=== PATIENT | male | born 1930 | race Caucasian/White ===

== ENCOUNTER 2016-11-07 18:34 | Emergency (ER) | payer OTHER ==
[~2016-11-07] VITALS: Ht 175.3 cm; Wt 102.6 kg
[~2016-11-07 18:34] MED LIST: ACETAMINOPHEN500 M1 PO; ADVAIR 250-501 EACH IH; ADVAIR 250/501 DISK IH; ASPIR 8181 M1 PO; ASPIRIN81 M1 PO; ATIVAN0.5 MG PO; BEE CAPS PO; CALCIUM600 MG PO; CIPRO500 MG PO; COLACE100 MG PO; COQ-10100 MG PO; CRANBERRY PO; CRANBERRY200 MG PO; CYANOCOBALAM1000 MCG PO; DULERA 200 MCG/13 GM IH; ENDOCET 5-3251 EACH PO; GARLIC OIL1 EACH PO; GARLIC PO; IMDUR60 MG PO; ISOSORBIDE ER PO; ISOSORBIDE MONO60 MG PO; K-DUR20 MEQ PO; LASIX40 MG PO; LISINOPRIL-HCT1 EACH PO; LO-DOSE ASPIRIN81 M2 PO; METOPROLOL SUCC25 MG PO; METOPROLOL TART25 MG PO; MOTRIN800 MG PO; MUCUS RELIEF400 MG PO; MULTIVITAMIN PO; MULTIVITAMIN1 EAC2 PO; Metoprolol Tartrate PO; OMEGA 3 FISH OIL PO; OMEGA FISH O PO; PERCOCET 5/31 TABLET PO; PLAVIX75 MG PO; PROTONIX40 MG PO; SALINE NOSE SPR45 M1 NS; SIMVASTATIN10 M1 PO; SIMVASTATIN40 MG PO; SINGULAIR10 MG PO; Singulair PO; TRAMADOL HCL50 MG PO; VITAMIN C500 M1 PO; VITAMIN D-32000 UNIT PO; VITAMIN D31000 UNI1 PO; ZESTORETIC,P1 TABLET PO; ZOCOR40 MG PO
[2016-11-07 21:20] LABS: ADD MIUA? YES; BILIRUBIN NEGATIVE; BLOOD NEGATIVE; COLOR YELLOW ((YELLOW)); GLUCOSE (STRIP) NEGATIVE; KETONES NEGATIVE; LEUKOCYTES LARGE; NITRITE POSITIVE; PROTEIN (STRIP) 30; SPECIFIC GRAVITY 1.011 (1.000-1.030); UROBILINOGEN 0.2 MG/DL (0.2-1.0)
[2016-11-07 22:02] LABS: BACTERIA RARE /HPF; CASTS NONE SEEN /LPF; CRYSTALS NONE SEEN; EPITHELIAL CELLS RARE /HPF; MUCUS NONE SEEN /LPF; RED BLOOD CELLS 0-5 /HPF (0-5); WHITE BLOOD CELLS TNTC /HPF (0-5)
[2016-11-07 22:45] LABS: HEMATOCRIT 38.1 % (38.0-50.0); MCH 30.1 PG (29.0-34.0); MCHC 32.3 G/DL (30.0-36.0); MCV 93.2 FL (86-99); MEAN PLAT.VOLUME 9.4 uM^3 (9.0-12.4); PLATELET COUNT 207 K/uL (156-360); RBC DIS.WIDTH-CV 14.1 % (11.8-14.6); RBC DIS.WIDTH-SD 47.5 % (39-53); RED BLOOD COUNT 4.09 M/uL (4.00-5.50)
[2016-11-07 22:58] LABS: CHLORIDE 101 mEq/L (99-109); POTASSIUM 3.2 mEq/L (3.7-5.4); SODIUM 139 mEq/L (136-147)
[2016-11-07 23:01] LABS: GLUCOSE 106 mg/dL (70-99)
[2016-11-07 23:02] LABS: ANION GAP 10 MEQ/L (2-14)
[2016-11-07 23:03] LABS: TOTAL BILIRUBIN 0.8 mg/dL (0.0-1.0)
[2016-11-07 23:04] LABS: ALKALINE PHOSPHATASE 52 IU/L (3-129); GFR ESTIMATE (CALCULATED) 38 mL/min/
[2016-11-07 23:05] LABS: UREA NITROGEN (BUN) 17 mg/dL (9-23)
[2016-11-07 23:08] LABS: LIPASE 43 U/L (1.0-51.0)
[2016-11-07] MEDS ORDERED: CIPRO500 MG PO (23:36)
[2016-11-07] MEDS ORDERED: TRAMADOL HCL50 MG PO (23:36)
[2016-11-08 00:22] VITALS: BP 133/70
== END 2016-11-08 00:22 | disposition home or self-care (01) ==
LOC: EME 18:34
PROVIDERS: Emergency Medicine
DX: N30.90 Cystitis, unspecified without hematuria (principal); M25.561 Pain in right knee; M25.562 Pain in left knee; G89.29 Other chronic pain; M17.9 Osteoarthritis of knee, unspecified; R60.0 Localized edema; E78.5 Hyperlipidemia, unspecified; I10 Essential (primary) hypertension; Z95.1 Presence of aortocoronary bypass graft; Z87.891 Personal history of nicotine dependence; Z79.82 Long term (current) use of aspirin
CPT/HCPCS: 73564; 74176; 80053; 81003; 83690; 85027

== ENCOUNTER 2016-11-29 20:28 | Inpatient (IN) | payer OTHER ==
[~2016-11-29] VITALS: Ht 170.2 cm; Wt 100.2 kg
[2016-11-29 20:58] LABS: EOSINOPHIL (%) 0.2 % (0-5); HEMATOCRIT 41.6 % (38.0-50.0); IMMATURE GRANULOCYTE (%) 0.6 % (0.0-0.7); IMMATURE GRANULOCYTE COUNT 0.1 K/uL; INSTRUMENT ABS NEUTROPHIL CT 8.5 K/uL; LYMPHOCYTE COUNT 1.6 K/uL (1.0-2.8); MCH 30.3 PG (29.0-34.0); MCHC 31.7 G/DL (30.0-36.0); MCV 95.4 FL (86-99); MEAN PLAT.VOLUME 9.4 uM^3 (9.0-12.4); MONOCYTE COUNT 0.8 K/uL (0-0.8); NEUTROPHIL (%) 77.3 % (45-76); NEUTROPHIL COUNT 8.5 K/uL (1.8-6.4); PLATELET COUNT 159 K/uL (156-360); RBC DIS.WIDTH-CV 14.6 % (11.8-14.6); RBC DIS.WIDTH-SD 51.3 % (39-53); RED BLOOD COUNT 4.36 M/uL (4.00-5.50); WHITE BLOOD COUNT 10.9 K/uL (4.1-10.2)
[2016-11-29 21:08] LABS: CHLORIDE 105 mEq/L (99-109); POTASSIUM 4.1 mEq/L (3.7-5.4); SODIUM 138 mEq/L (136-147)
[2016-11-29 21:10] LABS: GLUCOSE 108 mg/dL (70-99)
[2016-11-29 21:11] LABS: ANION GAP 9 MEQ/L (2-14)
[2016-11-29 21:14] LABS: GFR ESTIMATE (CALCULATED) 41 mL/min/
[2016-11-29 21:15] LABS: UREA NITROGEN (BUN) 30 mg/dL (9-23)
[2016-11-29 22:08] LABS: TROP-I INTERPRETATION NEGATIVE; TROPONIN-I 0.02 ng/mL (0.0-0.30)
[2016-11-29 22:13] LABS: ADD MIUA? YES; BILIRUBIN NEGATIVE; BLOOD SMALL; COLOR YELLOW ((YELLOW)); GLUCOSE (STRIP) NEGATIVE; KETONES NEGATIVE; LEUKOCYTES LARGE; NITRITE NEGATIVE; PROTEIN (STRIP) 100; SPECIFIC GRAVITY 1.013 (1.000-1.030)
[2016-11-29 22:32] LABS: BACTERIA 2+ /HPF; CASTS NONE SEEN /LPF; CRYSTALS NONE SEEN; EPITHELIAL CELLS 1+ /HPF; MUCUS NONE SEEN /LPF; UCUL ADDED? YES; WHITE BLOOD CELLS TNTC /HPF (0-5)
[2016-11-29] MEDS ORDERED: LO-DOSE ASPIRIN81 M2 PO (23:16)
[2016-11-29] MEDS ORDERED: EXTRA STRENGTH500 M1 PO (23:16)
[2016-11-29] MEDS ORDERED: CRANBERRY TABL1 EACH PO (23:17)
[2016-11-29] MEDS ORDERED: CLOPIDOGREL75 MG PO (23:17)
[2016-11-29] MEDS ORDERED: BREO ELLIPTA 21 EACH IH (23:17)
[2016-11-29] MEDS ORDERED: ONE DAILY FOR1 EAC2 PO (23:18)
[2016-11-29] MEDS ORDERED: FLONASE16 G1 BOTH NARES (23:18)
[2016-11-29] MEDS ORDERED: FISH OIL 1,0001 EAC7 PO (23:18)
[2016-11-29] MEDS ORDERED: FUROSEMIDE40 MG PO ×2 (23:19)
[2016-11-29] MEDS ORDERED: METOPROLOL TART25 MG PO (23:20)
[2016-11-29] MEDS ORDERED: ISOSORBIDE MONO60 MG PO (23:20)
[2016-11-29] MEDS ORDERED: PROTONIX40 MG PO (23:21)
[2016-11-29] MEDS ORDERED: NITROSTAT0.4 MG SL (23:21)
[2016-11-29] MEDS ORDERED: K-DUR10 MEQ PO (23:22)
[2016-11-29] MEDS ORDERED: VITAMIN D31000 UNIT PO (23:23)
[2016-11-29] MEDS ORDERED: SIMVASTATIN40 MG PO (23:23)
[2016-11-29] MEDS ORDERED: SINGULAIR10 MG PO (23:23)
[2016-11-29] MEDS ORDERED: VITRON-C TABLE1 EACH PO (23:24)
[2016-11-29] MEDS ORDERED: VITAMIN D32000 UNI1 PO (23:24)
[2016-11-30 02:33] LABS: D-DIMER ELISA > 4.00 mg/L FEU (< 0.57)
[2016-11-30 02:37] VITALS: BP 138/80
[2016-11-30 05:55] LABS: MCH 30.5 PG (29.0-34.0); MCV 95.2 FL (86-99); MEAN PLAT.VOLUME 10.1 uM^3 (9.0-12.4); PLATELET COUNT 165 K/uL (156-360); RBC DIS.WIDTH-CV 14.4 % (11.8-14.6); RBC DIS.WIDTH-SD 50.5 % (39-53)
[2016-11-30 06:17] LABS: ANION GAP 11 MEQ/L (2-14); CHLORIDE 102 MEQ/L (99-109); GFR ESTIMATE (CALCULATED) 38 mL/min/; GLUCOSE 113 mg/dL (70-99); POTASSIUM 3.7 MEQ/L (3.7-5.4); SAMPLE HEMOLYSIS CHECK 0; SAMPLE ICTERIC CHECK 0; SAMPLE LIPEMIA CHECK 0; SODIUM 141 MEQ/L (136-147); UREA NITROGEN (BUN) 32 mg/dL (9-23)
[2016-11-30 07:51] VITALS: BP 130/70
[2016-11-30 16:00] VITALS: BP 128/71
[2016-11-30 19:50] VITALS: BP 101/55
[2016-12-01] VITALS: BP 123/61
[2016-12-01 03:33] VITALS: BP 120/68
[2016-12-01 07:42] VITALS: BP 138/71
[2016-12-01 11:11] VITALS: BP 117/62
[2016-12-01 15:24] VITALS: BP 120/57
[2016-12-01 19:58] VITALS: BP 120/57
[2016-12-02] VITALS (7 sets, daily range): BP systolic 126–149; BP diastolic 62–89
[2016-12-02 06:11] LABS: ANION GAP 10 MEQ/L (2-14); CHLORIDE 101 MEQ/L (99-109); GFR ESTIMATE (CALCULATED) 41 mL/min/; GLUCOSE 103 mg/dL (70-99); POTASSIUM 3.3 MEQ/L (3.7-5.4); SAMPLE HEMOLYSIS CHECK 0; SAMPLE ICTERIC CHECK 0; SAMPLE LIPEMIA CHECK 0; SODIUM 140 MEQ/L (136-147); UREA NITROGEN (BUN) 34 mg/dL (9-23)
[2016-12-02 06:19] LABS: EOSINOPHIL (%) 2.9 % (0-5); EOSINOPHIL COUNT 0.2 K/uL (0-0.3); HEMATOCRIT 35.3 % (38.0-50.0); IMMATURE GRANULOCYTE (%) 0.4 % (0.0-0.7); INSTRUMENT ABS NEUTROPHIL CT 4.4 K/uL; LYMPHOCYTE COUNT 1.6 K/uL (1.0-2.8); MCHC 32.9 G/DL (30.0-36.0); MCV 94.4 FL (86-99); MONOCYTE (%) 7.9 % (3-12); MONOCYTE COUNT 0.5 K/uL (0-0.8); NEUTROPHIL (%) 64.6 % (45-76); NEUTROPHIL COUNT 4.4 K/uL (1.8-6.4); PLATELET COUNT 156 K/uL (156-360); RBC DIS.WIDTH-CV 14.1 % (11.8-14.6); RBC DIS.WIDTH-SD 48.6 % (39-53); RED BLOOD COUNT 3.74 M/uL (4.00-5.50); WHITE BLOOD COUNT 6.8 K/uL (4.1-10.2)
[2016-12-02 10:13] LABS: TREPONEMA ANTIBODY NEGATIVE (NEGATIVE)
[2016-12-03] VITALS: BP 156/74
[2016-12-03 03:46] VITALS: BP 139/68
[2016-12-03 06:12] LABS: EOSINOPHIL (%) 2.1 % (0-5); EOSINOPHIL COUNT 0.2 K/uL (0-0.3); HEMATOCRIT 37.3 % (38.0-50.0); IMMATURE GRANULOCYTE (%) 0.5 % (0.0-0.7); INSTRUMENT ABS NEUTROPHIL CT 4.6 K/uL; MCHC 33.2 G/DL (30.0-36.0); MCV 93.3 FL (86-99); MEAN PLAT.VOLUME 10.3 uM^3 (9.0-12.4); MONOCYTE COUNT 0.4 K/uL (0-0.8); NEUTROPHIL (%) 63.5 % (45-76); NEUTROPHIL COUNT 4.6 K/uL (1.8-6.4); PLATELET COUNT 172 K/uL (156-360); RBC DIS.WIDTH-SD 47.5 % (39-53); WHITE BLOOD COUNT 7.3 K/uL (4.1-10.2)
[2016-12-03 06:41] LABS: ANION GAP 11 MEQ/L (2-14); CHLORIDE 101 MEQ/L (99-109); GFR ESTIMATE (CALCULATED) 47 mL/min/; GLUCOSE 106 mg/dL (70-99); POTASSIUM 3.6 MEQ/L (3.7-5.4); SAMPLE HEMOLYSIS CHECK 0; SAMPLE ICTERIC CHECK 0; SAMPLE LIPEMIA CHECK 0; SODIUM 142 MEQ/L (136-147); UREA NITROGEN (BUN) 28 mg/dL (9-23)
[2016-12-03 08:39] VITALS: BP 149/82
[2016-12-03 11:26] VITALS: BP 138/79
[2016-12-03] MEDS ORDERED: FAMOTIDINE20 MG PO (12:09)
[2016-12-03] MEDS ORDERED: LINEZOLID600 MG PO (12:10)
== END 2016-12-03 14:19 | disposition home or self-care (01) | DRG 70 ==
LOC: EME → EDBD 20:28 → 5SOUTH 11-30 00:41 → EDOF 11-30 00:41 → 5SOUTH 11-30 02:20
PROVIDERS: Emergency Medicine; Hospitalist; Internal Medicine
DX: G93.41 Metabolic encephalopathy (principal); N30.01 Acute cystitis with hematuria; J96.01 Acute respiratory failure with hypoxia; I13.0 Hypertensive heart and chronic kidney disease with heart failure and stage 1 through stage 4 chronic kidney disease, or unspecified chronic kidney disease; I47.1 Supraventricular tachycardia; I25.10 Atherosclerotic heart disease of native coronary artery without angina pectoris; N18.4 Chronic kidney disease, stage 4 (severe); I50.32 Chronic diastolic (congestive) heart failure; I35.0 Nonrheumatic aortic (valve) stenosis; E66.9 Obesity, unspecified; I89.0 Lymphedema, not elsewhere classified; J84.10 Pulmonary fibrosis, unspecified; E78.5 Hyperlipidemia, unspecified; E87.6 Hypokalemia; F03.90 Unspecified dementia, unspecified severity, without behavioral disturbance, psychotic disturbance, mood disturbance, and anxiety; G31.9 Degenerative disease of nervous system, unspecified; J32.0 Chronic maxillary sinusitis; B95.62 Methicillin resistant Staphylococcus aureus infection as the cause of diseases classified elsewhere; J45.909 Unspecified asthma, uncomplicated; K44.9 Diaphragmatic hernia without obstruction or gangrene; M19.90 Unspecified osteoarthritis, unspecified site; K92.2 Gastrointestinal hemorrhage, unspecified; Z66 Do not resuscitate; Z95.1 Presence of aortocoronary bypass graft; Z85.828 Personal history of other malignant neoplasm of skin; Z95.5 Presence of coronary angioplasty implant and graft; Z87.11 Personal history of peptic ulcer disease; Z91.19 Patient's noncompliance with other medical treatment and regimen; Z87.891 Personal history of nicotine dependence; Z68.34 Body mass index [BMI] 34.0-34.9, adult; Z82.49 Family history of ischemic heart disease and other diseases of the circulatory system; Z90.49 Acquired absence of other specified parts of digestive tract
CPT/HCPCS: 70450; 70551; 71010; 71020; 78582; 80048; 81003; 82746; 83605; 83880; 84443; 84484; 85025; 85027; 85379; 86780; 87040; 87077; 87086; 87147; 87186; 93005; 93971; 94640; 94640 76; 94799; 99202; 99281; 99285; A9540; A9567; J0696; J1644; J1650; J1940; J2405; J3370; J7050

== ENCOUNTER 2017-03-06 12:26 | Emergency (ER) | payer OTHER ==
[~2017-03-06] VITALS: Ht 175.3 cm; Wt 99.8 kg
[~2017-03-06 12:26] MED LIST changes: +BREO ELLIPTA 21 EACH IH; +CLOPIDOGREL75 MG PO; +CRANBERRY TABL1 EACH PO; +EXTRA STRENGTH500 M1 PO; +FAMOTIDINE20 MG PO; +FISH OIL 1,0001 EAC7 PO; +FLONASE16 G1 BOTH NARES; +FUROSEMIDE40 MG PO; +K-DUR10 MEQ PO; +LINEZOLID600 MG PO; +NITROSTAT0.4 MG SL; +ONE DAILY FOR1 EAC2 PO; +VITAMIN D31000 UNIT PO; +VITAMIN D32000 UNI1 PO; +VITRON-C TABLE1 EACH PO
[2017-03-06 14:57] VITALS: BP 136/74
== END 2017-03-06 14:58 | disposition home or self-care (01) ==
LOC: EME 12:26
DX: S09.90XA Unspecified injury of head, initial encounter (principal); S43.401A Unspecified sprain of right shoulder joint, initial encounter; V49.50XA Passenger injured in collision with unspecified motor vehicles in traffic accident, initial encounter; Y92.410 Unspecified street and highway as the place of occurrence of the external cause; I10 Essential (primary) hypertension; J45.909 Unspecified asthma, uncomplicated; E78.5 Hyperlipidemia, unspecified; N35.9 Urethral stricture, unspecified; Z95.1 Presence of aortocoronary bypass graft; Z87.891 Personal history of nicotine dependence; Z85.828 Personal history of other malignant neoplasm of skin; Z79.02 Long term (current) use of antithrombotics/antiplatelets; Z79.82 Long term (current) use of aspirin
CPT/HCPCS: 70450; 73030; 99281; 99284

== ENCOUNTER 2017-04-30 11:27 | Emergency (ER) | payer OTHER ==
[~2017-04-30] VITALS: Ht 175.3 cm; Wt 100.6 kg
[2017-04-30 12:11] LABS: HEMATOCRIT 39.4 % (38.0-50.0); MCH 31.3 PG (29.0-34.0); MCHC 33.5 G/DL (30.0-36.0); MCV 93.4 FL (86-99); PLATELET COUNT 205 K/uL (156-360); RBC DIS.WIDTH-SD 47.3 % (39-53); RED BLOOD COUNT 4.22 M/uL (4.00-5.50); WHITE BLOOD COUNT 8.5 K/uL (4.1-10.2)
[2017-04-30 12:25] LABS: CHLORIDE 103 mEq/L (99-109); POTASSIUM 3.5 mEq/L (3.7-5.4); SODIUM 137 mEq/L (136-147)
[2017-04-30 12:27] LABS: GLUCOSE 96 mg/dL (70-99)
[2017-04-30 12:29] LABS: ANION GAP 10 MEQ/L (2-14); TOTAL BILIRUBIN 0.7 mg/dL (0.0-1.0)
[2017-04-30 12:31] LABS: ALKALINE PHOSPHATASE 53 IU/L (3-129); GFR ESTIMATE (CALCULATED) 43 mL/min/
[2017-04-30 12:32] LABS: UREA NITROGEN (BUN) 18 mg/dL (9-23)
[2017-04-30 13:35] LABS: ADD MIUA? YES; BILIRUBIN NEGATIVE; BLOOD NEGATIVE; COLOR YELLOW ((YELLOW)); GLUCOSE (STRIP) NEGATIVE; KETONES NEGATIVE; LEUKOCYTES LARGE; NITRITE NEGATIVE; PROTEIN (STRIP) NEGATIVE; SPECIFIC GRAVITY 1.009 (1.000-1.030); UROBILINOGEN 0.2 MG/DL (0.2-1.0)
[2017-04-30 13:42] LABS: BACTERIA RARE /HPF; EPITHELIAL CELLS RARE /HPF; MUCUS TRACE /LPF; UCUL ADDED? YES; UNCLASSIFIED CASTS 0-5 /LPF; WHITE BLOOD CELLS TNTC /HPF (0-5)
[2017-04-30] MEDS ORDERED: ZOFRAN4 MG PO (15:58)
[2017-04-30] MEDS ORDERED: KEFLEX500 MG PO (15:58)
[2017-04-30 16:35] VITALS: BP 117/70
== END 2017-04-30 16:38 | disposition home or self-care (01) ==
LOC: EME 11:27
DX: N39.0 Urinary tract infection, site not specified (principal); R11.2 Nausea with vomiting, unspecified; R19.7 Diarrhea, unspecified; E78.5 Hyperlipidemia, unspecified; I10 Essential (primary) hypertension; J45.909 Unspecified asthma, uncomplicated; Z87.440 Personal history of urinary (tract) infections; Z85.828 Personal history of other malignant neoplasm of skin; Z95.1 Presence of aortocoronary bypass graft; Z79.82 Long term (current) use of aspirin; Z88.2 Allergy status to sulfonamides; Z88.5 Allergy status to narcotic agent; Z87.891 Personal history of nicotine dependence; Z88.8 Allergy status to other drugs, medicaments and biological substances
CPT/HCPCS: 74177; 80053; 81003; 85027; 87077; 87086; 87186; 87493; 99281; 99285; J0696; J2405; J7030

== ENCOUNTER 2017-07-23 13:51 | Emergency (ER) | payer OTHER ==
[~2017-07-23] VITALS: Ht 175.3 cm; Wt 100.7 kg
[~2017-07-23 13:51] MED LIST changes: +KEFLEX500 MG PO; +ZOFRAN4 MG PO
[2017-07-23] MEDS ORDERED: COLCHICINE0.6 M1 PO (17:01)
[2017-07-23] MEDS ORDERED: PREDNISONE50 MG PO (17:01)
[2017-07-23 17:48] VITALS: BP 132/67
== END 2017-07-23 17:50 | disposition home or self-care (01) ==
LOC: EME 13:51
DX: M10.9 Gout, unspecified (principal); J45.909 Unspecified asthma, uncomplicated; E78.5 Hyperlipidemia, unspecified; I10 Essential (primary) hypertension; Z95.1 Presence of aortocoronary bypass graft; Z90.49 Acquired absence of other specified parts of digestive tract; Z87.440 Personal history of urinary (tract) infections; Z85.828 Personal history of other malignant neoplasm of skin; Z79.82 Long term (current) use of aspirin; Z87.891 Personal history of nicotine dependence; Z88.2 Allergy status to sulfonamides; Z88.5 Allergy status to narcotic agent; Z88.8 Allergy status to other drugs, medicaments and biological substances
CPT/HCPCS: 73564; 99281; 99284

== ENCOUNTER 2017-12-03 17:33 | Inpatient (IN) | payer OTHER ==
[~2017-12-03] VITALS: Ht 175.3 cm; Wt 108.4 kg
[~2017-12-03 17:33] MED LIST changes: +COLCHICINE0.6 M1 PO; -K-DUR10 MEQ PO; +MICRO-K10 ME2 PO; +PREDNISONE50 MG PO
[2017-12-03 18:44] LABS: HEMATOCRIT 38.8 % (38.0-50.0); HEMOGLOBIN 12.8 G/DL (12.5-16.6); MCH 31.8 PG (29.0-34.0); MCV 96.3 FL (86-99); PLATELET COUNT 204 K/uL (156-360); RBC DIS.WIDTH-CV 15.5 % (11.8-14.6); RBC DIS.WIDTH-SD 55.3 % (39-53); RED BLOOD COUNT 4.03 M/uL (4.00-5.50); WHITE BLOOD COUNT 10.3 K/uL (4.1-10.2)
[2017-12-03 18:45] LABS: ALBUMIN 3.9 g/dL (3.2-4.8); CHLORIDE 101 mEq/L (99-109)
[2017-12-03 18:46] LABS: POTASSIUM 4.1 mEq/L (3.7-5.4); SODIUM 141 mEq/L (136-147)
[2017-12-03 18:48] LABS: GLUCOSE 111 mg/dL (70-99)
[2017-12-03 18:50] LABS: TOTAL BILIRUBIN 0.5 mg/dL (0.0-1.0)
[2017-12-03 18:51] LABS: ALKALINE PHOSPHATASE 62 IU/L (3-129); CREATININE 1.9 mg/dL (0.6-1.3); GFR ESTIMATE (CALCULATED) 36 mL/min/ (58.99-99999)
[2017-12-03 18:53] LABS: AST (GOT) 22 IU/L (2-34); UREA NITROGEN (BUN) 19 mg/dL (9-23)
[2017-12-03 18:54] LABS: ALT (GPT) 14 IU/L (3-49)
[2017-12-03 18:58] LABS: TROP-I INTERPRETATION NEGATIVE; TROPONIN-I 0.01 ng/mL (0.0-0.30)
[2017-12-03] MEDS ORDERED: LEXAPRO10 MG PO (20:38)
[2017-12-03] MEDS ORDERED: CALCITRIOL0.25 MCG PO (20:38)
[2017-12-03] MEDS ORDERED: ARICEPT10 MG PO (20:38)
[2017-12-03] MEDS ORDERED: ALLOPURINOL100 MG PO (20:38)
[2017-12-03] MEDS ORDERED: PEPCID20 MG PO (20:38)
[2017-12-03] MEDS ORDERED: CRANBERRY 4001 EAC1 PO (20:39)
[2017-12-03 22:25] VITALS: BP 143/69
[2017-12-03 23:39] LABS: TROP-I INTERPRETATION NEGATIVE; TROPONIN-I 0.01 ng/mL (0.0-0.30)
[2017-12-04 04:44] VITALS: BP 159/70
[2017-12-04 07:02] LABS: BASOPHIL (%) 0.4 % (0-1); EOSINOPHIL (%) 2.1 % (0-5); EOSINOPHIL COUNT 0.2 K/uL (0-0.3); HEMATOCRIT 36.8 % (38.0-50.0); HEMOGLOBIN 11.7 G/DL (12.5-16.6); IMMATURE GRANULOCYTE (%) 0.6 % (0.0-0.7); LYMPHOCYTE (%) 34.9 % (15-42); LYMPHOCYTE COUNT 3.1 K/uL (1.0-2.8); MCHC 31.8 G/DL (30.0-36.0); MCV 97.4 FL (86-99); MONOCYTE (%) 7.2 % (3-12); MONOCYTE COUNT 0.6 K/uL (0-0.8); NEUTROPHIL (%) 54.8 % (45-76); NEUTROPHIL COUNT 4.9 K/uL (1.8-6.4); PLATELET COUNT 184 K/uL (156-360); RBC DIS.WIDTH-CV 15.7 % (11.8-14.6); RBC DIS.WIDTH-SD 55.8 % (39-53); RED BLOOD COUNT 3.78 M/uL (4.00-5.50); WHITE BLOOD COUNT 8.9 K/uL (4.1-10.2)
[2017-12-04 07:22] LABS: TROP-I INTERPRETATION NEGATIVE; TROPONIN-I 0.01 ng/mL (0.0-0.30)
[2017-12-04 07:24] LABS: CHLORIDE 100 MEQ/L (99-109); CREATININE 1.7 MG/DL (0.6-1.3); GFR ESTIMATE (CALCULATED) 41 mL/min/ (58.99-99999); GLUCOSE 126 mg/dL (70-99); POTASSIUM 3.7 MEQ/L (3.7-5.4); SODIUM 142 MEQ/L (136-147); UREA NITROGEN (BUN) 18 mg/dL (9-23)
[2017-12-04 08:00] VITALS: BP 148/77
[2017-12-04 16:37] VITALS: BP 134/88
[2017-12-04 19:10] VITALS: BP 116/64
[2017-12-05] VITALS (7 sets, daily range): BP systolic 100–143; BP diastolic 54–74
[2017-12-06 04:22] VITALS: BP 134/60
[2017-12-06 07:00] VITALS: BP 136/67
[2017-12-06 11:24] VITALS: BP 122/69
[2017-12-06 14:43] VITALS: BP 125/63
[2017-12-06 19:00] VITALS: BP 132/66
[2017-12-06 21:29] LABS: C DIFF TOXIN NEGATIVE (NEGATIVE)
[2017-12-06 23:57] VITALS: BP 129/61
[2017-12-07 03:16] VITALS: BP 137/95
[2017-12-07 07:58] VITALS: BP 150/91
[2017-12-07] MEDS ORDERED: DOXYCYCLINE HY100 M3 PO (11:22)
== END 2017-12-07 14:04 | disposition home health service (06) | DRG 194 ==
LOC: EME 17:33 → EXP 17:33 → EDOF 20:04 → 4SOUTH 20:04 → EDOF 20:04 → ENRESERV 20:22 → 4SOUTH 22:15
PROVIDERS: Hospitalist; Nurse Practitioner Adult Health; Nurse Practitioner Family
DX: J18.9 Pneumonia, unspecified organism (principal); I50.32 Chronic diastolic (congestive) heart failure; R09.02 Hypoxemia; I25.10 Atherosclerotic heart disease of native coronary artery without angina pectoris; I13.0 Hypertensive heart and chronic kidney disease with heart failure and stage 1 through stage 4 chronic kidney disease, or unspecified chronic kidney disease; K21.9 Gastro-esophageal reflux disease without esophagitis; Z95.5 Presence of coronary angioplasty implant and graft; Z95.1 Presence of aortocoronary bypass graft; E78.5 Hyperlipidemia, unspecified; J45.20 Mild intermittent asthma, uncomplicated; N18.3 Chronic kidney disease, stage 3 (moderate); F03.90 Unspecified dementia, unspecified severity, without behavioral disturbance, psychotic disturbance, mood disturbance, and anxiety; I45.4 Nonspecific intraventricular block; I45.10 Unspecified right bundle-branch block; Z79.82 Long term (current) use of aspirin; Z85.828 Personal history of other malignant neoplasm of skin; Z87.440 Personal history of urinary (tract) infections
CPT/HCPCS: 71045; 71046; 74018; 80048; 80053; 83605; 83880; 84145 90; 84484; 85025; 85027; 87040; 87493; 93005; 94640; 94640 76; 94760; 94799; 99202; 99281; 99285; G0378; J0295; J0456; J1644; J2405; J7030; J7050